=== PATIENT | male | born 1935 | race Caucasian/White ===

== ENCOUNTER 2018-10-01 10:55 | Outpatient (CLI) | payer MEDICARE, BC ==
--- NOTE | 2018-10-01 12:38 | RAD ---
CERVICAL SPINE SERIES FIVE VIEWS WITH OBLIQUES: History: Neck pain. FINDINGS: Vertebral bodies are normal in height. There is severe disc narrowing at the C5-6 level. Prominent de generative facet changes are seen along the course of the spine. There are carotid bulb calcification s incidentally noted. IMPRESSION: Moderate osteoarthritic changes of the spine. POS: [facility]
== END 2018-10-01 10:56 | disposition home or self-care (01) ==
LOC: NAV RAD 10:55
PROVIDERS: ATTEND Family Medicine
DX: M47.22 Other spondylosis with radiculopathy, cervical region (principal)
CPT/HCPCS: 72050

== ENCOUNTER 2020-09-22 01:57 | Emergency (ER) | payer MEDICARE, BC ==
[2020-09-22 03:04] LABS: #Basophils 0.1 thou/uL (0.0-0.2); #Eosinphils 0.4 thou/uL (0.0-0.7); #Lymphocytes 1.6 thou/uL (1.20-3.40); #Monocytes 0.8 thou/uL (0.11-0.59); #Neutrophils 4.8 thou/uL (1.40-6.50); %Basophils 0.9 % (0.0-1.0); %Lymphocytes 21.1 % (21.0-51.0); %Neutrophils 63.1 % (42.0-75.0); Hemoglobin 12.8 g/dL (14.0-18.0); Mean Corpuscular HGB CONC 32.7 g/dL (32.0-36.0); Mean Corpuscular Hemoglobin 30.8 pg (27.0-31.0); Mean Corpuscular Volume 94.2 fL (78.0-98.0); Mean Platelet Volume 7.4 fL (7.4-10.4); Platelet Count 173 thou/uL (130-400); RBC Distribution Width 13.2 % (11.5-14.5); Red Blood Cell (RBC) Count 4.16 mill/uL (4.70-6.10); White Blood Cell (WBC) Count 7.6 thou/uL (4.8-10.8)
[2020-09-22 03:10] LABS: INR-International Normal Ratio 1.2; PTT 35.4 sec (22.9-36.1); Prothrombin Time 15.6 sec (12.0-14.7)
[2020-09-22 03:26] LABS: ALT (SGPT) 24 U/L (8-55); AST (SGOT) 24 U/L (5-34); Albumin 3.2 g/dL (3.4-4.8); Alkaline Phosphatase 62 U/L (40-110); Anion Gap 13 mmol/L (10-20); BUN (Urea Nitrogen) 30 mg/dL (8.4-25.7); Bilirubin, Total 0.4 mg/dL (0.2-1.2); Calc. Creatinine Clearance 0 mL/min (70-130); Calcium 8.2 mg/dL (7.8-10.44); Carbon Dioxide 25 mmol/L (23-31); Chloride 104 mmol/L (98-107); Globulin 2.5 g/dL (2.4-3.5); Glucose 97 mg/dL (83-110); Potassium 4.2 mmol/L (3.5-5.1); Protein, Total 5.7 g/dL (5.8-8.1); Sodium 138 mmol/L (136-145)
[2020-09-22 03:27] LABS: CK (CPK) 27 U/L (30-200)
[2020-09-22 03:39] LABS: Bilirubin Negative (Negative); Blood, Urine Small (Negative); Clarity Clear (Clear); Glucose, Urine (Dipstick) Negative (Negative); Ketone, Urine Negative (Negative); Leukocyte Negative (Negative); Nitrite Negative (Negative); Protein, Urine (Dipstick) Negative (Neg-Trace)
[2020-09-22 03:40] LABS: Bacteria/HPF None Seen HPF (None Seen); Squamous Epithelial None Seen HPF (0-3); WBC/HPF None Seen HPF (0-3)
[2020-09-22 03:53] LABS: Amphetamine Not Detected (NotDetected); Barbiturates Screen Not Detected (NotDetected); Benzodiazepine Screen Not Detected (NotDetected); Cocaine Metabolite Screen Not Detected (NotDetected); Medtox Control Line Valid? VALID (VALID); Methadone Not Detected (NotDetected); Methamphetamine Not Detected (NotDetected); Opiate Screen Not Detected (NotDetected); Oxycodone Screen Not Detected (NotDetected); Phencyclidine (PCP) Not Detected (NotDetected); THC/Cannabinoid Screen Detected (NotDetected); Tricyclic Screen Not Detected (NotDetected)
--- NOTE | 2020-09-22 07:43 | CT ---
PRELIMINARY REPORT/[facility]/EMERGENCY AFTER HOURS PROCEDURE: This report was discussed with DORIS ZAMORA MD by Macrina Obregon on Sep 22, 2020 03:07:00 ANALYTICAL LABORATORY TECHNICIAN. Addendum electronically signed by Macrina Obregon on September 22, 2020 3:07:30 AM ANALYTICAL LABORATORY TECHNICIAN EXAM: CT Head Without Intravenous Contrast. CLINICAL HISTORY: ALTERED MENTAL STATUS TECHNIQUE: Axial computed tomography images of the head/brain without intravenous contrast. COMPARISON: None provided. FINDINGS: BRAIN: No acute intraparenchymal hemorrhage. No mass lesion. No CT evidence for acute territorial infarct. N o midline shift or extra-axial collection. VENTRICLES: No hydrocephalus. ORBITS: The orbits are unremarkable. SINUSES AND MASTOIDS: The paranasal sinuses and mastoid air cells are clear. SOFT TISSUES: No significant facial or scalp soft tissue swelling evident. No radiopaque foreign body is seen. BONES: No acute skull fracture. IMPRESSION: No acute intracranial abnormality. ELECTRONICALLY SIGNED BY: Jung Mott MD Sep 22, 2020 3:05:58 AM ANALYTICAL LABORATORY TECHNICIAN This report is intended for review by the ordering physician only, in accordance of law. If you recei ve this report in error, please call [facility] at [phone]. FINAL REPORT HEAD CT WITHOUT CONTRAST: HISTORY: Altered mental status. Weakness. COMPARISON: None. FINDINGS: Hemorrhage: No intraparenchymal hemorrhage or extra-axial hematoma. Brain parenchyma: Cortical [place]-white matter differentiation is preserved. No mass effect or midline shift. Basilar cisterns are patent.There are chronic small vessel ischemic changes of the white matter. Ventricular system: Ventricles and sulci are patent and symmetric. Calvarium: Intact. Sinuses and mastoid air cells: Adequate aeration. IMPRESSION: 1. This report is in agreement with initial report by [facility]. 2. No acute intracranial process. Transcribed Date/Time: 09/22/2020 8:02 AM
--- NOTE | 2020-09-22 08:08 | CT ---
PRELIMINARY REPORT/[facility]/EMERGENCY AFTER HOURS PROCEDURE EXAM: CTA Head and Neck with Intravenous Contrast. CLINICAL HISTORY: ALTERED MENTAL STATUS TECHNIQUE: Axial CTA images of the head and neck performed with intravenous contrast. Two-dimensional MIP and/or three-dimensional MIP and volume rendered reformations were performed. Note: Per PQRS, the description of internal carotid artery percent stenosis, including 0 percent or n ormal exam, is based on [place] Symptomatic Carotid Endarterectomy Trial (NASCET) criteria. CONTRAST: With; ISOVUE 370 95 ML COMPARISON: None provided. FINDINGS: Vascular evaluation of the carotid, vertebral, and intracranial vessels nondiagnostic due to lack of intravenous contrast material. The carotid vessels do not show any significant calcified plaque. No hyperdense vascular structures noted at the level of ione of [place]. There is considerable atherosclerotic disease however through the aortic arch. Great vessel origins appear intact. Soft tissues of the neck are symmetric. Prominent degenerative changes of the cervical spine. IMPRESSION: Nondiagnostic CT angiogram of the head and neck. No significant calcified plaque identified. ELECTRONICALLY SIGNED BY: Johnie Le MD Sep 22, 2020 4:58:44 AM REGIONAL RECRUITER This report is intended for review by the ordering physician only, in accordance of law. If you recei ve this report in error, please call [facility] at [phone]. FINAL REPORT EXAM: CT ANGIOGRAM OF THE HEAD AND NECK INDICATION: Altered mental status. COMPARISON: None TECHNIQUE: CT angiogram of the head and neck are performed in the axial plane. Three-dimensional refo rmatted images are submitted for interpretation. FINDINGS: CTA OF THE HEAD WITH AND WITHOUT CONTRAST: POSTCONTRAST CT OF BRAIN: Inadequate contrast opacification. Postcontrast soft tissue neck CT: Grossly no abnormality with regards to the soft tissue neck structures. Limited evaluation due to mikayla dequate contrast opacification. Upper mediastinum and lung apices: No acute abnormality. CTA OF THE NECK WITH CONTRAST: Nondiagnostic exam due to inadequate contrast opacification. CTA OF THE BRAIN: Nondiagnostic exam due to inadequate contrast opacification. IMPRESSION: 1. This report is in agreement with initial report by [facility]. 2. Nondiagnostic exam due to inadequate contrast opacification. Transcribed Date/Time: 09/22/2020 8:13 AM
[2020-09-22] MEDS ORDERED: Iopamidol 370 76% 100 ML VIAL ONE ×2 (09:00)
== END 2020-09-22 04:30 | disposition short-term general hospital (02) ==
LOC: NAV ERS 01:57
DX: I63.9 Cerebral infarction, unspecified (principal); L76.22 Postprocedural hemorrhage of skin and subcutaneous tissue following other procedure; R29.703 NIHSS score 3; I48.20 Chronic atrial fibrillation, unspecified; G62.9 Polyneuropathy, unspecified; Z79.01 Long term (current) use of anticoagulants; Z79.899 Other long term (current) drug therapy; Z79.82 Long term (current) use of aspirin
CPT/HCPCS: 70450; 70496; 80053; 80306; 81003; 81015; 82550; 83605; 84443; 84484; 85025; 85610; 85730; 93005; Q9967

== ENCOUNTER 2020-10-19 17:35 | Inpatient (IN) | payer MEDICARE, BC ==
[2020-10-19 20:20] LABS: SARS-CoV-2 NAA Rapid Test Not Detected (NotDetected)
[2020-10-19] MEDS: Apixaban 2.5 MG TAB PO SCH (20:28)
[2020-10-19] MEDS: Gabapentin 300 MG CAP PO SCH (20:28)
[2020-10-19] MEDS: Digoxin 0.125 MG TAB PO SCH (20:29)
[2020-10-19] MEDS: Aspirin 81 mg Enteric Coated Tablet PO SCH (20:29)
[2020-10-20] MEDS: Atorvastatin Calcium 40 MG TAB PO SCH ×2 (00:07→20:17)
[2020-10-20] MEDS: NITRIC OXIDE PO SCH ×2 (00:08→10:03)
[2020-10-20] MEDS: traMADol HCl 50 MG TAB PO PRN ×2 (02:13→10:18)
[2020-10-20 04:58] LABS: Bilirubin Negative (Negative); Blood, Urine Trace (Negative); Clarity Clear (Clear); Glucose, Urine (Dipstick) Negative (Negative); Ketone, Urine Negative (Negative); Leukocyte Negative (Negative); Nitrite Negative (Negative); Protein, Urine (Dipstick) Negative (Neg-Trace)
[2020-10-20 05:04] LABS: Bacteria/HPF None Seen HPF (None Seen); RBC/HPF 0-3 HPF (0-3); Squamous Epithelial None Seen HPF (0-3); Urine Culture Reflex No No; WBC/HPF None Seen HPF (0-3)
[2020-10-20 05:43] LABS: #Basophils 0.1 thou/uL (0.0-0.2); #Eosinphils 0.5 thou/uL (0.0-0.7); #Lymphocytes 1.7 thou/uL (1.20-3.40); #Monocytes 1.1 thou/uL (0.11-0.59); #Neutrophils 8.6 thou/uL (1.40-6.50); %Eosinophils 3.9 % (0.0-10.0); %Monocytes 8.9 % (0.0-10.0); %Neutrophils 72.3 % (42.0-75.0); Hemoglobin 12.2 g/dL (14.0-18.0); Mean Corpuscular Hemoglobin 31.6 pg (27.0-31.0); Mean Corpuscular Volume 92.8 fL (78.0-98.0); Mean Platelet Volume 7.6 fL (7.4-10.4); Platelet Count 144 thou/uL (130-400); RBC Distribution Width 13.6 % (11.5-14.5); Red Blood Cell (RBC) Count 3.88 mill/uL (4.70-6.10); White Blood Cell (WBC) Count 11.9 thou/uL (4.8-10.8)
[2020-10-20 05:55] LABS: Anion Gap 12 mmol/L (10-20); BUN (Urea Nitrogen) 13 mg/dL (8.4-25.7); Calc. Creatinine Clearance 106 mL/min (70-130); Calcium 8.5 mg/dL (7.8-10.44); Carbon Dioxide 25 mmol/L (23-31); Chloride 101 mmol/L (98-107); Glucose 98 mg/dL (83-110); Potassium 3.4 mmol/L (3.5-5.1); Sodium 135 mmol/L (136-145)
[2020-10-20] MEDS ORDERED: OSTEO BIFLEX PO SCH (09:00)
[2020-10-20] MEDS ORDERED: Potassium Chloride 20 MEQ TAB PO SCH (09:45)
[2020-10-20] MEDS: Vit A,C & E/Lutein/Minerals Tablet PO SCH (09:59)
[2020-10-20] MEDS: Cefuroxime Axetil 250 MG TAB PO SCH ×2 (10:00→20:19)
[2020-10-20] MEDS: Donepezil HCl 10 MG TAB PO SCH (10:00)
[2020-10-20] MEDS: Apixaban 2.5 MG TAB PO SCH ×2 (10:01→20:17)
[2020-10-20] MEDS: Citalopram 20 MG TAB PO SCH (10:01)
[2020-10-20] MEDS: Multivitamin W/ Minerals 1 TAB PO SCH (10:01)
[2020-10-20] MEDS: Bupropion 150 MG XL TAB PO SCH (10:02)
[2020-10-20] MEDS ORDERED: traMADol HCl 50 MG TAB PO SCH (14:00)
[2020-10-20] MEDS: Polyethylene Glycol 3350 17 GM Packet PO PRN (14:51)
[2020-10-20] MEDS: Acetaminophen 325 MG TAB PO PRN (14:51)
[2020-10-20] MEDS: traMADol HCl 50 MG TAB PO SCH (18:39)
[2020-10-20] MEDS: Gabapentin 300 MG CAP PO SCH (20:18)
[2020-10-20] MEDS: Aspirin 81 mg Enteric Coated Tablet PO SCH (20:18)
[2020-10-20] MEDS: Digoxin 0.125 MG TAB PO SCH (20:19)
[2020-10-21] MEDS: traMADol HCl 50 MG TAB PO SCH ×4 (03:32→21:10)
[2020-10-21 05:42] LABS: #Basophils 0.1 thou/uL (0.0-0.2); #Eosinphils 0.6 thou/uL (0.0-0.7); #Lymphocytes 1.8 thou/uL (1.20-3.40); #Monocytes 0.9 thou/uL (0.11-0.59); #Neutrophils 4.9 thou/uL (1.40-6.50); %Basophils 1.3 % (0.0-1.0); %Eosinophils 7.7 % (0.0-10.0); %Monocytes 10.8 % (0.0-10.0); %Neutrophils 59.2 % (42.0-75.0); Hemoglobin 11.9 g/dL (14.0-18.0); Mean Corpuscular HGB CONC 33.3 g/dL (32.0-36.0); Mean Corpuscular Hemoglobin 30.8 pg (27.0-31.0); Mean Corpuscular Volume 92.6 fL (78.0-98.0); Platelet Count 165 thou/uL (130-400); RBC Distribution Width 13.4 % (11.5-14.5); Red Blood Cell (RBC) Count 3.85 mill/uL (4.70-6.10); White Blood Cell (WBC) Count 8.3 thou/uL (4.8-10.8)
[2020-10-21 05:54] LABS: Anion Gap 13 mmol/L (10-20); BUN (Urea Nitrogen) 21 mg/dL (8.4-25.7); Calc. Creatinine Clearance 89 mL/min (70-130); Calcium 8.6 mg/dL (7.8-10.44); Carbon Dioxide 26 mmol/L (23-31); Chloride 103 mmol/L (98-107); Glucose 89 mg/dL (83-110); Potassium 3.7 mmol/L (3.5-5.1); Sodium 138 mmol/L (136-145)
[2020-10-21] MEDS: Donepezil HCl 10 MG TAB PO SCH (08:56)
[2020-10-21] MEDS: Vit A,C & E/Lutein/Minerals Tablet PO SCH (08:56)
[2020-10-21] MEDS: Citalopram 20 MG TAB PO SCH (08:56)
[2020-10-21] MEDS: Bupropion 150 MG XL TAB PO SCH (08:57)
[2020-10-21] MEDS: Cefuroxime Axetil 250 MG TAB PO SCH ×2 (08:57→21:12)
[2020-10-21] MEDS: Apixaban 2.5 MG TAB PO SCH (08:57)
[2020-10-21] MEDS: Multivitamin W/ Minerals 1 TAB PO SCH (08:58)
[2020-10-21] MEDS: Polyethylene Glycol 3350 17 GM Packet PO PRN ×2 (09:00→21:09)
[2020-10-21] MEDS: Acetaminophen 325 MG TAB PO PRN (17:33)
[2020-10-21] MEDS: Digoxin 0.125 MG TAB PO SCH (21:09)
[2020-10-21] MEDS: Aspirin 81 mg Enteric Coated Tablet PO SCH (21:10)
[2020-10-21] MEDS: Atorvastatin Calcium 40 MG TAB PO SCH (21:10)
[2020-10-21] MEDS: Gabapentin 300 MG CAP PO SCH (21:11)
[2020-10-22] MEDS: traMADol HCl 50 MG TAB PO SCH ×3 (06:39→22:03)
[2020-10-22] MEDS: Polyethylene Glycol 3350 17 GM Packet PO PRN ×2 (09:10→20:43)
[2020-10-22] MEDS: Multivitamin W/ Minerals 1 TAB PO SCH (09:10)
[2020-10-22] MEDS: Vit A,C & E/Lutein/Minerals Tablet PO SCH (09:11)
[2020-10-22] MEDS: Bupropion 150 MG XL TAB PO SCH (09:11)
[2020-10-22] MEDS: Citalopram 20 MG TAB PO SCH (09:11)
[2020-10-22] MEDS: Donepezil HCl 10 MG TAB PO SCH (09:11)
[2020-10-22] MEDS: Cefuroxime Axetil 250 MG TAB PO SCH ×2 (09:12→20:40)
[2020-10-22] MEDS: Acetaminophen 325 MG TAB PO PRN ×2 (09:22→17:54)
[2020-10-22] MEDS ORDERED: Erythromycin Base 0.5% Oint 1 GM TUBE EA EYE SCH (09:45)
[2020-10-22] MEDS ORDERED: Erythromycin Base 0.5% Oint 1 GM TUBE ONE (10:07)
[2020-10-22 18:28] VITALS: BMI 27.2
[2020-10-22] MEDS: Digoxin 0.125 MG TAB PO SCH (20:40)
[2020-10-22] MEDS: Gabapentin 300 MG CAP PO SCH (20:41)
[2020-10-22] MEDS: Atorvastatin Calcium 40 MG TAB PO SCH (20:41)
[2020-10-22] MEDS: Erythromycin Base 0.5% Oint 1 GM TUBE EA EYE SCH (20:43)
[2020-10-22] MEDS: Aspirin 81 mg Enteric Coated Tablet PO SCH (20:44)
[2020-10-23] MEDS: traMADol HCl 50 MG TAB PO SCH ×3 (05:49→21:54)
[2020-10-23] MEDS: Cefuroxime Axetil 250 MG TAB PO SCH ×2 (08:32→20:41)
[2020-10-23] MEDS: Citalopram 20 MG TAB PO SCH (08:32)
[2020-10-23] MEDS: Bupropion 150 MG XL TAB PO SCH (08:32)
[2020-10-23] MEDS: Vit A,C & E/Lutein/Minerals Tablet PO SCH (08:34)
[2020-10-23] MEDS: Donepezil HCl 10 MG TAB PO SCH (08:34)
[2020-10-23] MEDS: Erythromycin Base 0.5% Oint 1 GM TUBE EA EYE SCH ×2 (08:34→20:44)
[2020-10-23] MEDS: Multivitamin W/ Minerals 1 TAB PO SCH (08:34)
[2020-10-23] MEDS: Acetaminophen 325 MG TAB PO PRN (09:23)
[2020-10-23] MEDS: Milk Of Magnesia 30 ML UDCUP PO PRN ×2 (13:54→21:56)
[2020-10-23] MEDS: Gabapentin 300 MG CAP PO SCH (20:40)
[2020-10-23] MEDS: Aspirin 81 mg Enteric Coated Tablet PO SCH (20:42)
[2020-10-23] MEDS: Apixaban 2.5 MG TAB PO SCH (20:42)
[2020-10-23] MEDS: Atorvastatin Calcium 40 MG TAB PO SCH (20:42)
[2020-10-23] MEDS: Digoxin 0.125 MG TAB PO SCH (20:42)
[2020-10-23] MEDS ORDERED: Milk Of Magnesia 30 ML UDCUP PO PRN (23:23)
[2020-10-24 04:02] LABS: #Basophils 0.1 thou/uL (0.0-0.2); #Eosinphils 0.4 thou/uL (0.0-0.7); #Lymphocytes 2.4 thou/uL (1.20-3.40); #Monocytes 1.3 thou/uL (0.11-0.59); #Neutrophils 6.2 thou/uL (1.40-6.50); %Basophils 0.9 % (0.0-1.0); %Eosinophils 4.2 % (0.0-10.0); %Lymphocytes 23.3 % (21.0-51.0); %Monocytes 12.5 % (0.0-10.0); Mean Corpuscular HGB CONC 32.9 g/dL (32.0-36.0); Mean Corpuscular Hemoglobin 30.5 pg (27.0-31.0); Mean Corpuscular Volume 92.6 fL (78.0-98.0); Mean Platelet Volume 6.5 fL (7.4-10.4); Platelet Count 225 thou/uL (130-400); RBC Distribution Width 13.7 % (11.5-14.5); Red Blood Cell (RBC) Count 3.92 mill/uL (4.70-6.10); White Blood Cell (WBC) Count 10.5 thou/uL (4.8-10.8)
[2020-10-24 04:13] LABS: Anion Gap 13 mmol/L (10-20); BUN (Urea Nitrogen) 30 mg/dL (8.4-25.7); Calc. Creatinine Clearance 80 mL/min (70-130); Calcium 8.7 mg/dL (7.8-10.44); Carbon Dioxide 26 mmol/L (23-31); Chloride 103 mmol/L (98-107); Glucose 131 mg/dL (83-110); Potassium 4.3 mmol/L (3.5-5.1); Sodium 138 mmol/L (136-145)
[2020-10-24] MEDS: traMADol HCl 50 MG TAB PO SCH ×3 (06:14→20:54)
[2020-10-24] MEDS: Cefuroxime Axetil 250 MG TAB PO SCH ×2 (08:50→20:53)
[2020-10-24] MEDS: Apixaban 2.5 MG TAB PO SCH ×2 (08:50→20:53)
[2020-10-24] MEDS: Bupropion 150 MG XL TAB PO SCH (08:50)
[2020-10-24] MEDS: Citalopram 20 MG TAB PO SCH (08:51)
[2020-10-24] MEDS: Multivitamin W/ Minerals 1 TAB PO SCH (08:52)
[2020-10-24] MEDS: Donepezil HCl 10 MG TAB PO SCH (08:52)
[2020-10-24] MEDS: Polyethylene Glycol 3350 17 GM Packet PO SCH (08:52)
[2020-10-24] MEDS: Erythromycin Base 0.5% Oint 1 GM TUBE EA EYE SCH ×2 (08:52→20:55)
[2020-10-24] MEDS: Vit A,C & E/Lutein/Minerals Tablet PO SCH (08:52)
[2020-10-24] MEDS: Atorvastatin Calcium 40 MG TAB PO SCH (20:53)
[2020-10-24] MEDS: Gabapentin 300 MG CAP PO SCH (20:53)
[2020-10-24] MEDS: Aspirin 81 mg Enteric Coated Tablet PO SCH (20:53)
[2020-10-24] MEDS: Digoxin 0.125 MG TAB PO SCH (20:54)
[2020-10-25] MEDS: traMADol HCl 50 MG TAB PO SCH ×3 (05:50→21:07)
[2020-10-25] MEDS: Polyethylene Glycol 3350 17 GM Packet PO SCH (10:24)
[2020-10-25] MEDS: Erythromycin Base 0.5% Oint 1 GM TUBE EA EYE SCH ×2 (10:24→21:10)
[2020-10-25] MEDS: Bupropion 150 MG XL TAB PO SCH (10:25)
[2020-10-25] MEDS: Apixaban 2.5 MG TAB PO SCH ×2 (10:25→21:06)
[2020-10-25] MEDS: Vit A,C & E/Lutein/Minerals Tablet PO SCH (10:25)
[2020-10-25] MEDS: Multivitamin W/ Minerals 1 TAB PO SCH (10:25)
[2020-10-25] MEDS: Citalopram 20 MG TAB PO SCH (10:25)
[2020-10-25] MEDS: Donepezil HCl 10 MG TAB PO SCH (10:26)
[2020-10-25] MEDS: Cefuroxime Axetil 250 MG TAB PO SCH ×2 (10:26→21:10)
[2020-10-25] MEDS: Acetaminophen 325 MG TAB PO PRN (12:39)
[2020-10-25] MEDS: Gabapentin 300 MG CAP PO SCH (21:06)
[2020-10-25] MEDS: Atorvastatin Calcium 40 MG TAB PO SCH (21:06)
[2020-10-25] MEDS: Digoxin 0.125 MG TAB PO SCH (21:07)
[2020-10-25] MEDS: Aspirin 81 mg Enteric Coated Tablet PO SCH (21:07)
[2020-10-26 05:59] LABS: #Basophils 0.1 thou/uL (0.0-0.2); #Eosinphils 0.4 thou/uL (0.0-0.7); #Lymphocytes 2.1 thou/uL (1.20-3.40); #Monocytes 1.2 thou/uL (0.11-0.59); #Neutrophils 7.6 thou/uL (1.40-6.50); %Basophils 0.9 % (0.0-1.0); %Eosinophils 3.5 % (0.0-10.0); %Lymphocytes 18.7 % (21.0-51.0); %Monocytes 10.2 % (0.0-10.0); %Neutrophils 66.7 % (42.0-75.0); Hemoglobin 12.3 g/dL (14.0-18.0); Mean Corpuscular HGB CONC 32.4 g/dL (32.0-36.0); Mean Corpuscular Hemoglobin 29.7 pg (27.0-31.0); Mean Corpuscular Volume 91.6 fL (78.0-98.0); Platelet Count 258 thou/uL (130-400); RBC Distribution Width 13.1 % (11.5-14.5); Red Blood Cell (RBC) Count 4.14 mill/uL (4.70-6.10); White Blood Cell (WBC) Count 11.4 thou/uL (4.8-10.8)
[2020-10-26] MEDS: traMADol HCl 50 MG TAB PO SCH ×3 (06:09→23:02)
[2020-10-26] MEDS: Polyethylene Glycol 3350 17 GM Packet PO SCH (09:02)
[2020-10-26] MEDS: Bupropion 150 MG XL TAB PO SCH (09:02)
[2020-10-26] MEDS: Vit A,C & E/Lutein/Minerals Tablet PO SCH (09:02)
[2020-10-26] MEDS: Citalopram 20 MG TAB PO SCH (09:02)
[2020-10-26] MEDS: Apixaban 2.5 MG TAB PO SCH ×2 (09:02→21:17)
[2020-10-26] MEDS: Multivitamin W/ Minerals 1 TAB PO SCH (09:02)
[2020-10-26] MEDS: Erythromycin Base 0.5% Oint 1 GM TUBE EA EYE SCH ×2 (09:02→21:21)
[2020-10-26] MEDS: Cefuroxime Axetil 250 MG TAB PO SCH ×2 (09:03→21:17)
[2020-10-26] MEDS: Donepezil HCl 10 MG TAB PO SCH (09:03)
[2020-10-26] MEDS: Acetaminophen 325 MG TAB PO PRN ×2 (12:50→21:20)
[2020-10-26] MEDS ORDERED: Lidocaine 5% Patch TD SCH (14:00)
[2020-10-26] MEDS: Gabapentin 300 MG CAP PO SCH (21:17)
[2020-10-26] MEDS: Atorvastatin Calcium 40 MG TAB PO SCH (21:17)
[2020-10-26] MEDS: Digoxin 0.125 MG TAB PO SCH (21:17)
[2020-10-26] MEDS: Aspirin 81 mg Enteric Coated Tablet PO SCH (21:17)
[2020-10-27] MEDS: LIDOCAINE Patch Removal TOP SCH (02:00)
[2020-10-27] MEDS: traMADol HCl 50 MG TAB PO SCH ×3 (05:39→23:30)
[2020-10-27] MEDS: Multivitamin W/ Minerals 1 TAB PO SCH (08:35)
[2020-10-27] MEDS: Donepezil HCl 10 MG TAB PO SCH (08:35)
[2020-10-27] MEDS: Bupropion 150 MG XL TAB PO SCH (08:35)
[2020-10-27] MEDS: Lidocaine 5% Patch TD SCH (08:35)
[2020-10-27] MEDS: Citalopram 20 MG TAB PO SCH (08:35)
[2020-10-27] MEDS: Apixaban 2.5 MG TAB PO SCH ×2 (08:35→19:38)
[2020-10-27] MEDS: Cefuroxime Axetil 250 MG TAB PO SCH ×2 (08:35→19:38)
[2020-10-27] MEDS: Vit A,C & E/Lutein/Minerals Tablet PO SCH (08:35)
[2020-10-27] MEDS: Erythromycin Base 0.5% Oint 1 GM TUBE EA EYE SCH ×3 (08:36→19:39)
[2020-10-27] MEDS: Polyethylene Glycol 3350 17 GM Packet PO SCH (08:36)
[2020-10-27] MEDS: Acetaminophen 325 MG TAB PO PRN (17:34)
[2020-10-27] MEDS: Digoxin 0.125 MG TAB PO SCH (19:37)
[2020-10-27] MEDS: Atorvastatin Calcium 40 MG TAB PO SCH (19:38)
[2020-10-27] MEDS: Gabapentin 300 MG CAP PO SCH (19:38)
[2020-10-27] MEDS: Aspirin 81 mg Enteric Coated Tablet PO SCH (19:39)
[2020-10-27] MEDS: Transdermal Patch Removal TOP SCH (19:40)
[2020-10-28] MEDS: LIDOCAINE Patch Removal TOP SCH (02:04)
[2020-10-28] MEDS: Sodium Chloride 0.9% 10 ML ONE ×2 (02:30→14:25)
[2020-10-28] MEDS: cefTRIAXone\\ROCEPHIN 1 GM in Sodium Chloride 0.9% 100 ML IVPB SCH ×2 (02:39→14:25)
[2020-10-28] MEDS: traMADol HCl 50 MG TAB PO SCH ×3 (05:45→21:47)
[2020-10-28] MEDS: Clindamycin 150 MG CAP PO SCH ×2 (05:45→11:08)
[2020-10-28] MEDS: Lidocaine 5% Patch TD SCH (08:40)
[2020-10-28] MEDS: Multivitamin W/ Minerals 1 TAB PO SCH (08:41)
[2020-10-28] MEDS: Vit A,C & E/Lutein/Minerals Tablet PO SCH (08:41)
[2020-10-28] MEDS: Citalopram 20 MG TAB PO SCH (08:41)
[2020-10-28] MEDS: Bupropion 150 MG XL TAB PO SCH (08:41)
[2020-10-28] MEDS: Cefuroxime Axetil 250 MG TAB PO SCH (08:41)
[2020-10-28] MEDS: Donepezil HCl 10 MG TAB PO SCH (08:41)
[2020-10-28] MEDS: Erythromycin Base 0.5% Oint 1 GM TUBE EA EYE SCH ×2 (08:42→21:49)
[2020-10-28] MEDS: Polyethylene Glycol 3350 17 GM Packet PO SCH (08:42)
[2020-10-28] MEDS: Apixaban 2.5 MG TAB PO SCH ×2 (08:42→21:47)
[2020-10-28 17:12] LABS: #Basophils 0.1 thou/uL (0.0-0.2); #Eosinphils 0.4 thou/uL (0.0-0.7); #Lymphocytes 2.1 thou/uL (1.20-3.40); #Monocytes 0.8 thou/uL (0.11-0.59); #Neutrophils 7.5 thou/uL (1.40-6.50); %Basophils 0.7 % (0.0-1.0); %Eosinophils 3.3 % (0.0-10.0); %Lymphocytes 19.2 % (21.0-51.0); %Monocytes 7.8 % (0.0-10.0); %Neutrophils 68.9 % (42.0-75.0); Hemoglobin 11.8 g/dL (14.0-18.0); Mean Corpuscular HGB CONC 31.8 g/dL (32.0-36.0); Mean Corpuscular Volume 94.4 fL (78.0-98.0); Mean Platelet Volume 6.8 fL (7.4-10.4); Platelet Count 284 thou/uL (130-400); RBC Distribution Width 13.5 % (11.5-14.5); Red Blood Cell (RBC) Count 3.93 mill/uL (4.70-6.10); White Blood Cell (WBC) Count 10.8 thou/uL (4.8-10.8)
[2020-10-28 17:26] LABS: Anion Gap 14 mmol/L (10-20); BUN (Urea Nitrogen) 30 mg/dL (8.4-25.7); Calc. Creatinine Clearance 87 mL/min (70-130); Calcium 8.8 mg/dL (7.8-10.44); Carbon Dioxide 23 mmol/L (23-31); Chloride 106 mmol/L (98-107); Glucose 140 mg/dL (83-110); Potassium 4.1 mmol/L (3.5-5.1); Sodium 139 mmol/L (136-145)
[2020-10-28] MEDS: Acetaminophen 325 MG TAB PO PRN (17:53)
[2020-10-28] MEDS ORDERED: Doxycycline 100 MG CAP PO SCH ×2 (21:00→22:00)
[2020-10-28] MEDS: Digoxin 0.125 MG TAB PO SCH (21:45)
[2020-10-28] MEDS: Aspirin 81 mg Enteric Coated Tablet PO SCH (21:46)
[2020-10-28] MEDS: Gabapentin 300 MG CAP PO SCH (21:46)
[2020-10-28] MEDS: Atorvastatin Calcium 40 MG TAB PO SCH (21:47)
[2020-10-28] MEDS: Transdermal Patch Removal TOP SCH (21:49)
[2020-10-29] MEDS: cefTRIAXone\\ROCEPHIN 1 GM in Sodium Chloride 0.9% 100 ML IVPB SCH ×2 (03:22→15:22)
[2020-10-29] MEDS: traMADol HCl 50 MG TAB PO SCH ×3 (05:40→21:12)
[2020-10-29 05:47] LABS: Anion Gap 12 mmol/L (10-20); BUN (Urea Nitrogen) 26 mg/dL (8.4-25.7); Calc. Creatinine Clearance 90 mL/min (70-130); Calcium 8.8 mg/dL (7.8-10.44); Carbon Dioxide 27 mmol/L (23-31); Chloride 105 mmol/L (98-107); Glucose 95 mg/dL (83-110); Sodium 140 mmol/L (136-145)
[2020-10-29 06:17] LABS: #Basophils 0.1 thou/uL (0.0-0.2); #Eosinphils 0.5 thou/uL (0.0-0.7); #Monocytes 0.9 thou/uL (0.11-0.59); #Neutrophils 5.9 thou/uL (1.40-6.50); %Basophils 1.3 % (0.0-1.0); %Eosinophils 4.9 % (0.0-10.0); %Lymphocytes 21.1 % (21.0-51.0); %Monocytes 9.3 % (0.0-10.0); %Neutrophils 63.4 % (42.0-75.0); Hemoglobin 12.3 g/dL (14.0-18.0); Mean Corpuscular HGB CONC 32.5 g/dL (32.0-36.0); Mean Corpuscular Hemoglobin 30.1 pg (27.0-31.0); Mean Corpuscular Volume 92.6 fL (78.0-98.0); Mean Platelet Volume 6.8 fL (7.4-10.4); Platelet Count 273 thou/uL (130-400); RBC Distribution Width 13.1 % (11.5-14.5); White Blood Cell (WBC) Count 9.4 thou/uL (4.8-10.8)
[2020-10-29] MEDS: Bupropion 150 MG XL TAB PO SCH (08:41)
[2020-10-29] MEDS: Multivitamin W/ Minerals 1 TAB PO SCH (08:41)
[2020-10-29] MEDS: Vit A,C & E/Lutein/Minerals Tablet PO SCH (08:42)
[2020-10-29] MEDS: Donepezil HCl 10 MG TAB PO SCH (08:42)
[2020-10-29] MEDS: Citalopram 20 MG TAB PO SCH (08:42)
[2020-10-29] MEDS: Apixaban 2.5 MG TAB PO SCH ×2 (08:42→21:11)
[2020-10-29] MEDS: Doxycycline 100 MG CAP PO SCH ×2 (08:42→21:11)
[2020-10-29] MEDS: Erythromycin Base 0.5% Oint 1 GM TUBE EA EYE SCH ×2 (08:43→21:10)
[2020-10-29] MEDS: Polyethylene Glycol 3350 17 GM Packet PO SCH (08:43)
[2020-10-29] MEDS: Lidocaine 5% Patch TD SCH (08:43)
[2020-10-29] MEDS: Atorvastatin Calcium 40 MG TAB PO SCH (21:11)
[2020-10-29] MEDS: Digoxin 0.125 MG TAB PO SCH (21:11)
[2020-10-29] MEDS: Gabapentin 300 MG CAP PO SCH (21:12)
[2020-10-29] MEDS: Aspirin 81 mg Enteric Coated Tablet PO SCH (21:12)
[2020-10-29] MEDS: Transdermal Patch Removal TOP SCH (21:13)
[2020-10-30] MEDS: cefTRIAXone\\ROCEPHIN 1 GM in Sodium Chloride 0.9% 100 ML IVPB SCH ×2 (03:20→14:12)
[2020-10-30] MEDS: traMADol HCl 50 MG TAB PO SCH ×3 (06:05→20:46)
[2020-10-30] MEDS: Lidocaine 5% Patch TD SCH (09:16)
[2020-10-30] MEDS: Polyethylene Glycol 3350 17 GM Packet PO SCH (09:16)
[2020-10-30] MEDS: Doxycycline 100 MG CAP PO SCH ×2 (09:17→20:39)
[2020-10-30] MEDS: Apixaban 2.5 MG TAB PO SCH ×2 (09:17→20:40)
[2020-10-30] MEDS: Multivitamin W/ Minerals 1 TAB PO SCH (09:17)
[2020-10-30] MEDS: Bupropion 150 MG XL TAB PO SCH (09:17)
[2020-10-30] MEDS: Donepezil HCl 10 MG TAB PO SCH (09:17)
[2020-10-30] MEDS: Citalopram 20 MG TAB PO SCH (09:17)
[2020-10-30] MEDS: Vit A,C & E/Lutein/Minerals Tablet PO SCH (09:17)
[2020-10-30] MEDS ORDERED: Lisinopril 20 MG TAB PO SCH (11:45)
[2020-10-30] MEDS: Aspirin 81 mg Enteric Coated Tablet PO SCH (20:39)
[2020-10-30] MEDS: Atorvastatin Calcium 40 MG TAB PO SCH (20:39)
[2020-10-30] MEDS: Digoxin 0.125 MG TAB PO SCH (20:40)
[2020-10-30] MEDS: Gabapentin 300 MG CAP PO SCH (20:40)
[2020-10-30] MEDS: Transdermal Patch Removal TOP SCH (20:47)
[2020-10-31] MEDS: cefTRIAXone\\ROCEPHIN 1 GM in Sodium Chloride 0.9% 100 ML IVPB SCH ×2 (03:25→15:05)
[2020-10-31] MEDS: traMADol HCl 50 MG TAB PO SCH ×3 (06:19→21:08)
[2020-10-31] MEDS: Lidocaine 5% Patch TD SCH (08:32)
[2020-10-31] MEDS: Vit A,C & E/Lutein/Minerals Tablet PO SCH (08:33)
[2020-10-31] MEDS: Multivitamin W/ Minerals 1 TAB PO SCH (08:33)
[2020-10-31] MEDS: Doxycycline 100 MG CAP PO SCH ×2 (08:33→21:10)
[2020-10-31] MEDS: Citalopram 20 MG TAB PO SCH (08:33)
[2020-10-31] MEDS: Lisinopril 20 MG TAB PO SCH (08:34)
[2020-10-31] MEDS: Donepezil HCl 10 MG TAB PO SCH (08:35)
[2020-10-31] MEDS: Apixaban 2.5 MG TAB PO SCH ×2 (08:35→21:10)
[2020-10-31] MEDS: Bupropion 150 MG XL TAB PO SCH (08:35)
[2020-10-31] MEDS: Polyethylene Glycol 3350 17 GM Packet PO SCH (08:36)
[2020-10-31] MEDS: Digoxin 0.125 MG TAB PO SCH (21:08)
[2020-10-31] MEDS: Gabapentin 300 MG CAP PO SCH (21:09)
[2020-10-31] MEDS: Atorvastatin Calcium 40 MG TAB PO SCH (21:10)
[2020-10-31] MEDS: Aspirin 81 mg Enteric Coated Tablet PO SCH (21:10)
[2020-10-31] MEDS: Transdermal Patch Removal TOP SCH (21:14)
[2020-11-01] MEDS: traMADol HCl 50 MG TAB PO SCH ×3 (05:51→21:37)
[2020-11-01] MEDS: Lisinopril 20 MG TAB PO SCH (08:19)
[2020-11-01] MEDS: Doxycycline 100 MG CAP PO SCH ×2 (08:19→21:34)
[2020-11-01] MEDS: Lidocaine 5% Patch TD SCH (08:19)
[2020-11-01] MEDS: Citalopram 20 MG TAB PO SCH (08:20)
[2020-11-01] MEDS: Donepezil HCl 10 MG TAB PO SCH (08:20)
[2020-11-01] MEDS: Vit A,C & E/Lutein/Minerals Tablet PO SCH (08:20)
[2020-11-01] MEDS: Apixaban 2.5 MG TAB PO SCH ×2 (08:20→21:37)
[2020-11-01] MEDS: Bupropion 150 MG XL TAB PO SCH (08:20)
[2020-11-01] MEDS: Multivitamin W/ Minerals 1 TAB PO SCH (08:20)
[2020-11-01] MEDS: Polyethylene Glycol 3350 17 GM Packet PO SCH (08:21)
[2020-11-01] MEDS ORDERED: cefTRIAXone\\ROCEPHIN 2 GM in Sodium Chloride 0.9% 100 ML IVPB SCH (09:00)
[2020-11-01] MEDS: cefTRIAXone\\ROCEPHIN 2 GM in Sodium Chloride 0.9% 100 ML IVPB SCH (14:27)
[2020-11-01] MEDS: Atorvastatin Calcium 40 MG TAB PO SCH (21:35)
[2020-11-01] MEDS: Ibuprofen 200 MG TAB PO SCH (21:35)
[2020-11-01] MEDS: Digoxin 0.125 MG TAB PO SCH (21:36)
[2020-11-01] MEDS: Aspirin 81 mg Enteric Coated Tablet PO SCH (21:36)
[2020-11-01] MEDS: Gabapentin 300 MG CAP PO SCH (21:37)
[2020-11-01] MEDS: Transdermal Patch Removal TOP SCH (21:37)
[2020-11-02] MEDS: traMADol HCl 50 MG TAB PO SCH ×3 (06:27→21:43)
[2020-11-02] MEDS: Multivitamin W/ Minerals 1 TAB PO SCH (07:53)
[2020-11-02] MEDS: Vit A,C & E/Lutein/Minerals Tablet PO SCH (07:53)
[2020-11-02] MEDS: Doxycycline 100 MG CAP PO SCH ×2 (07:53→21:19)
[2020-11-02] MEDS: Citalopram 20 MG TAB PO SCH (07:53)
[2020-11-02] MEDS: Lidocaine 5% Patch TD SCH (07:53)
[2020-11-02] MEDS: Apixaban 2.5 MG TAB PO SCH ×2 (07:54→21:19)
[2020-11-02] MEDS: Ibuprofen 200 MG TAB PO SCH ×4 (07:54→21:20)
[2020-11-02] MEDS: Donepezil HCl 10 MG TAB PO SCH (07:54)
[2020-11-02] MEDS: Lisinopril 20 MG TAB PO SCH (07:54)
[2020-11-02] MEDS: Bupropion 150 MG XL TAB PO SCH ×2 (07:56→13:55)
[2020-11-02] MEDS: Polyethylene Glycol 3350 17 GM Packet PO SCH (07:56)
[2020-11-02] MEDS: cefTRIAXone\\ROCEPHIN 2 GM in Sodium Chloride 0.9% 100 ML IVPB SCH (13:59)
[2020-11-02] MEDS: Aspirin 81 mg Enteric Coated Tablet PO SCH (21:19)
[2020-11-02] MEDS: Gabapentin 300 MG CAP PO SCH (21:19)
[2020-11-02] MEDS: Atorvastatin Calcium 40 MG TAB PO SCH (21:19)
[2020-11-02] MEDS: Digoxin 0.125 MG TAB PO SCH (21:20)
[2020-11-02] MEDS: Transdermal Patch Removal TOP SCH (21:24)
[2020-11-03] MEDS: traMADol HCl 50 MG TAB PO SCH ×3 (05:42→20:38)
[2020-11-03] MEDS: Lidocaine 5% Patch TD SCH (08:04)
[2020-11-03] MEDS: Bupropion 150 MG XL TAB PO SCH (08:04)
[2020-11-03] MEDS: Citalopram 20 MG TAB PO SCH (08:05)
[2020-11-03] MEDS: Vit A,C & E/Lutein/Minerals Tablet PO SCH (08:06)
[2020-11-03] MEDS: Lisinopril 20 MG TAB PO SCH (08:06)
[2020-11-03] MEDS: Apixaban 2.5 MG TAB PO SCH ×2 (08:07→20:34)
[2020-11-03] MEDS: Doxycycline 100 MG CAP PO SCH ×2 (08:07→20:34)
[2020-11-03] MEDS: Multivitamin W/ Minerals 1 TAB PO SCH (08:07)
[2020-11-03] MEDS: Donepezil HCl 10 MG TAB PO SCH (08:08)
[2020-11-03] MEDS: Ibuprofen 200 MG TAB PO SCH ×4 (08:09→20:34)
[2020-11-03] MEDS: Polyethylene Glycol 3350 17 GM Packet PO SCH (08:10)
[2020-11-03] MEDS: cefTRIAXone\\ROCEPHIN 2 GM in Sodium Chloride 0.9% 100 ML IVPB SCH (14:58)
[2020-11-03] MEDS: Digoxin 0.125 MG TAB PO SCH (20:34)
[2020-11-03] MEDS: Atorvastatin Calcium 40 MG TAB PO SCH (20:35)
[2020-11-03] MEDS: Gabapentin 300 MG CAP PO SCH (20:35)
[2020-11-03] MEDS: Aspirin 81 mg Enteric Coated Tablet PO SCH (20:35)
[2020-11-03] MEDS: Transdermal Patch Removal TOP SCH (20:35)
[2020-11-04] MEDS: traMADol HCl 50 MG TAB PO SCH ×2 (05:19→13:00)
[2020-11-04] MEDS: Ibuprofen 200 MG TAB PO SCH ×2 (09:13→12:55)
[2020-11-04] MEDS: Bupropion 150 MG XL TAB PO SCH (09:15)
[2020-11-04] MEDS: Multivitamin W/ Minerals 1 TAB PO SCH (09:15)
[2020-11-04] MEDS: Vit A,C & E/Lutein/Minerals Tablet PO SCH (09:15)
[2020-11-04] MEDS: Apixaban 2.5 MG TAB PO SCH (09:15)
[2020-11-04] MEDS: Lisinopril 20 MG TAB PO SCH (09:15)
[2020-11-04] MEDS: Citalopram 20 MG TAB PO SCH (09:15)
[2020-11-04] MEDS: Doxycycline 100 MG CAP PO SCH (09:16)
[2020-11-04] MEDS: Polyethylene Glycol 3350 17 GM Packet PO SCH (09:16)
[2020-11-04] MEDS: Lidocaine 5% Patch TD SCH (09:16)
[2020-11-04] MEDS: Donepezil HCl 10 MG TAB PO SCH (09:16)
[2020-11-04] MEDS: cefTRIAXone\\ROCEPHIN 2 GM in Sodium Chloride 0.9% 100 ML IVPB SCH (14:26)
[2020-11-04 15:38] VITALS: BP 153/87; TEMP 96.7
== END 2020-11-04 15:20 | disposition home or self-care (01) | DRG 920 ==
LOC: NAV ACUTE 17:35
PROVIDERS: ADMIT Internal Medicine; ATTEND Internal Medicine
DX: N99.840 Postprocedural hematoma of a genitourinary system organ or structure following a genitourinary system procedure (principal); E87.1 Hypo-osmolality and hyponatremia; Y83.8 Other surgical procedures as the cause of abnormal reaction of the patient, or of later complication, without mention of misadventure at the time of the procedure; I48.91 Unspecified atrial fibrillation; G62.9 Polyneuropathy, unspecified; R32 Unspecified urinary incontinence; F03.90 Unspecified dementia, unspecified severity, without behavioral disturbance, psychotic disturbance, mood disturbance, and anxiety; F32.9 Major depressive disorder, single episode, unspecified; E78.5 Hyperlipidemia, unspecified; I10 Essential (primary) hypertension; M54.12 Radiculopathy, cervical region; F41.9 Anxiety disorder, unspecified; M19.90 Unspecified osteoarthritis, unspecified site; N49.2 Inflammatory disorders of scrotum; Z20.822 Contact with and (suspected) exposure to COVID-19; R53.81 Other malaise; E87.6 Hypokalemia; Z86.73 Personal history of transient ischemic attack (TIA), and cerebral infarction without residual deficits; Z79.01 Long term (current) use of anticoagulants; Z88.1 Allergy status to other antibiotic agents; Z88.0 Allergy status to penicillin; Z88.8 Allergy status to other drugs, medicaments and biological substances
CPT/HCPCS: 0240U; 36415; 36416; 80048; 81001; 85025; J0696; J3490

== ENCOUNTER 2021-01-16 14:10 | Outpatient (CLI) | payer MEDICARE, BC ==
[2021-01-16 16:37] LABS: Bilirubin Negative (Negative); Blood, Urine Trace (Negative); Clarity Clear (Clear); Glucose, Urine (Dipstick) Negative (Negative); Ketone, Urine Negative (Negative); Leukocyte Trace (Negative); Nitrite Positive (Negative); Protein, Urine (Dipstick) Negative (Neg-Trace); Specific Gravity, Urine 1.025 (1.005-1.030); Urobilinogen 0.2 mg/dL (Less than 2); pH, Urine 5.5 (5.0-9.0)
[2021-01-16 17:44] LABS: Bacteria/HPF Rare-Few HPF (None Seen); RBC/HPF 0-3 HPF (0-3); Squamous Epithelial 0-3 HPF (0-3)
[2021-01-17 09:08] LABS: Follow-up Result - Urinalysis REPORT FAXED; Follow-up UA Comp? YES
== END 2021-01-16 14:11 | disposition home or self-care (01) ==
LOC: NAV LABSP 14:10
DX: N39.0 Urinary tract infection, site not specified (principal)
CPT/HCPCS: 81001; 87077; 87086

== ENCOUNTER 2024-04-17 10:00 | Emergency (ER) | payer MEDICARE, BC ==
[2024-04-17] MEDS ORDERED: Boostrix 0.5 ML (Tdap) VIAL (>/=7 yrs of age) ONE (11:00)
== END 2024-04-17 11:15 | disposition home or self-care (01) ==
LOC: NAV ERS 10:00
DX: S01.01XA Laceration without foreign body of scalp, initial encounter (principal); W01.10XA Fall on same level from slipping, tripping and stumbling with subsequent striking against unspecified object, initial encounter
CPT/HCPCS: 70450; 90715